=== PATIENT | male | born 1960 | race Caucasian/White ===

== ENCOUNTER 2019-07-23 21:13 | Emergency (ER) | payer OTHER ==
[~2019-07-23] VITALS: Ht 167.6 cm; Wt 81.6 kg
--- NOTE | 2019-07-23 22:39 | Diagnostic Imaging Report ---
X-ray right hand 3 views HISTORY: Pain. COMPARISON: None available. FINDINGS: Bones: No acute displaced fracture. Subtle dorsal subluxation of the distal ulna. Joints: Scattered degenerative changes in the fingers and degenerative changes at the first carpometacarpal joint. Soft tissues: No gross soft tissue abnormalities. No radiopaque foreign bodies. IMPRESSION: No acute displaced fractures. Subtle dorsal subluxation of the distal ulna. Degenerative changes in the fingers and hand. Signed by: Daniel Jackson DO on 07/23/2019 10:35 PM
== END 2019-07-24 00:06 | disposition home or self-care (01) ==
LOC: FSED 21:13
DX: S63.652A Sprain of metacarpophalangeal joint of right middle finger, initial encounter (principal); S63.654A Sprain of metacarpophalangeal joint of right ring finger, initial encounter; Y93.59 Activity, other involving other sports and athletics played individually; X50.1XXA Overexertion from prolonged static or awkward postures, initial encounter; Y92.39 Other specified sports and athletic area as the place of occurrence of the external cause
CPT/HCPCS: 99283